=== PATIENT | male | born 1985 | race Caucasian/White ===

== ENCOUNTER 2016-10-29 07:37 | Emergency (ER) | payer OTHER ==
[~2016-10-29] VITALS: Ht 175.3 cm; Wt 70.1 kg
[~2016-10-29 07:37] MED LIST: DEPAKOTE500 MG PO; LIDODERM PATCH; METHADONE10 MG PO; Methadone PO; NICOTINE PATCH; TEGRETOL100 MG PO
[2016-10-29] MEDS ORDERED: MOTRIN800 MG PO (08:19)
[2016-10-29] MEDS ORDERED: FLEXERIL10 MG PO (08:19)
[2016-10-29 09:16] VITALS: BP 131/92
== END 2016-10-29 09:17 | disposition left against medical advice (07) ==
LOC: EME 07:37
DX: S20.211A Contusion of right front wall of thorax, initial encounter (principal); M25.511 Pain in right shoulder; V49.40XA Driver injured in collision with unspecified motor vehicles in traffic accident, initial encounter; F17.200 Nicotine dependence, unspecified, uncomplicated
CPT/HCPCS: 71020; 73030; 99281; 99284

== ENCOUNTER 2017-04-02 12:38 | Inpatient (IN) | payer OTHER ==
[~2017-04-02] VITALS: Ht 175.3 cm; Wt 68.4 kg
[~2017-04-02 12:38] MED LIST changes: +DEPAKOTE ER250 MG PO; -DEPAKOTE500 MG PO; +FLEXERIL10 MG PO; +MOTRIN800 MG PO
[2017-04-02 14:34] LABS: HEMATOCRIT ND % (38.0-50.0); MCH ND PG (29.0-34.0); MCHC ND G/DL (30.0-36.0); MCV ND FL (86-99); RED BLOOD COUNT ND M/uL (4.00-5.50); WHITE BLOOD COUNT ND K/uL (4.1-10.2)
[2017-04-02 14:35] LABS: EOSINOPHIL (%) ND % (0-5); EOSINOPHIL COUNT ND K/uL (0-0.3); IMMATURE GRANULOCYTE (%) ND % (0.0-0.7); LYMPHOCYTE COUNT ND K/uL (1.0-2.8); MONOCYTE (%) ND % (3-12); MONOCYTE COUNT ND K/uL (0-0.8); NEUTROPHIL (%) ND % (45-76); NEUTROPHIL COUNT ND K/uL (1.8-6.4); RBC DIS.WIDTH-CV ND % (11.8-14.6); RBC DIS.WIDTH-SD ND % (39-53)
[2017-04-02 14:36] LABS: BASOPHIL COUNT ND K/uL (0-0.1); IMMATURE GRANULOCYTE COUNT ND K/uL; INSTRUMENT ABS NEUTROPHIL CT ND K/uL; NRBC (%) ND /100 WBC (0-0)
[2017-04-02 14:43] LABS: CHLORIDE 106 mEq/L (99-109); POTASSIUM 3.6 mEq/L (3.7-5.4); SODIUM 140 mEq/L (136-147)
[2017-04-02 14:44] LABS: MAGNESIUM 2.4 mg/dL (1.3-2.7)
[2017-04-02 14:45] LABS: GLUCOSE 105 mg/dL (70-99)
[2017-04-02 14:47] LABS: ANION GAP 12 MEQ/L (2-14); TOTAL BILIRUBIN 1.5 mg/dL (0.0-1.0)
[2017-04-02 14:49] LABS: ALKALINE PHOSPHATASE 68 IU/L (3-129); GFR ESTIMATE (CALCULATED) > 59 mL/min/
[2017-04-02 14:50] LABS: UREA NITROGEN (BUN) 8 mg/dL (9-23)
[2017-04-02 15:03] LABS: EOSINOPHIL (%) 0 % (0-5); HEMATOCRIT 38.7 % (38.0-50.0); IMMATURE GRANULOCYTE (%) 0.8 % (0.0-0.7); IMMATURE GRANULOCYTE COUNT 0.2 K/uL; INSTRUMENT ABS NEUTROPHIL CT 15.3 K/uL; LYMPHOCYTE COUNT 1.1 K/uL (1.0-2.8); MCHC 36.2 G/DL (30.0-36.0); MCV 80.3 FL (86-99); MEAN PLAT.VOLUME 10.1 uM^3 (9.0-12.4); MONOCYTE (%) 7.9 % (3-12); MONOCYTE COUNT 1.4 K/uL (0-0.8); NEUTROPHIL (%) 85.3 % (45-76); NEUTROPHIL COUNT 15.3 K/uL (1.8-6.4); PLATELET COUNT 185 K/uL (156-360); RBC DIS.WIDTH-CV 12.5 % (11.8-14.6); RBC DIS.WIDTH-SD 35.5 % (39-53); RED BLOOD COUNT 4.82 M/uL (4.00-5.50)
[2017-04-02] MEDS ORDERED: ADVIL,NUPRIN,M200 MG PO (15:36)
[2017-04-02] MEDS ORDERED: DEPAKOTE ER250 MG PO (15:36)
[2017-04-02] MEDS ORDERED: TYLENOL REGULA325 MG PO (15:36)
[2017-04-02] MEDS ORDERED: CLEOCIN150 MG PO (15:36)
[2017-04-02] MEDS ORDERED: BACTRIM,SEPT1 TABLET PO (15:37)
[2017-04-02 18:01] VITALS: BP 132/78
[2017-04-03 00:04] VITALS: BP 129/76
[2017-04-03 03:20] VITALS: BP 130/80
[2017-04-03 06:06] LABS: HEMATOCRIT 39.3 % (38.0-50.0); MCH 28.8 PG (29.0-34.0); MCHC 34.6 G/DL (30.0-36.0); MCV 83.1 FL (86-99); MEAN PLAT.VOLUME 10.3 uM^3 (9.0-12.4); PLATELET COUNT 175 K/uL (156-360); RBC DIS.WIDTH-CV 12.8 % (11.8-14.6); RBC DIS.WIDTH-SD 38.2 % (39-53); RED BLOOD COUNT 4.73 M/uL (4.00-5.50); WHITE BLOOD COUNT 12.6 K/uL (4.1-10.2)
[2017-04-03 06:31] LABS: ANION GAP 11 MEQ/L (2-14); CHLORIDE 111 MEQ/L (99-109); GFR ESTIMATE (CALCULATED) > 59 mL/min/; GLUCOSE 98 mg/dL (70-99); POTASSIUM 3.8 MEQ/L (3.7-5.4); SAMPLE HEMOLYSIS CHECK 0; SAMPLE ICTERIC CHECK 0; SAMPLE LIPEMIA CHECK 0; SODIUM 144 MEQ/L (136-147); UREA NITROGEN (BUN) 10 mg/dL (9-23)
[2017-04-03 09:09] VITALS: BP 12/74; BP 120/74
[2017-04-03 10:33] LABS: HIV-1/2 AB/AG COMBO Nonreactive
[2017-04-03 11:49] LABS: HIV INDEX 0.14
[2017-04-03 12:20] LABS: HPCA INDEX 14.18
[2017-04-03 15:41] VITALS: BP 118/77
[2017-04-03 23:30] VITALS: BP 138/81
[2017-04-04] VITALS (7 sets, daily range): BP systolic 123–152; BP diastolic 73–92
[2017-04-04 03:55] LABS: INTER. NORMALIZED RATIO 1.2; PROTHROMBIN TIME 12.7 SEC (10.2-12.9)
[2017-04-04 03:57] LABS: PTT 27.5 SEC (25-37)
[2017-04-04 04:10] LABS: TROP-I INTERPRETATION NEGATIVE; TROPONIN-I < 0.01 ng/mL (0.0-0.30)
[2017-04-05 00:10] VITALS: BP 110/68
[2017-04-05 04:17] VITALS: BP 120/75
[2017-04-05 08:00] VITALS: BP 128/72
[2017-04-05 10:47] LABS: HBSG INDEX 0.19
[2017-04-05 10:49] LABS: ANTI-HEPATITIS A VIRUS (IGM) Nonreactive; ANTI-HEPATITIS B CORE (IGM) Nonreactive; HAV INDEX 0.18; HBC IgM INDEX 0.08
[2017-04-05 10:53] LABS: HPCA INDEX 14.66
[2017-04-05 12:00] VITALS: BP 124/72
[2017-04-05 16:00] VITALS: BP 134/68
[2017-04-05 19:43] VITALS: BP 129/70
[2017-04-06 00:18] VITALS: BP 134/80
[2017-04-06 04:30] VITALS: BP 129/61
[2017-04-06] MEDS ORDERED: BACTRIM,SEPT1 TABLET PO (07:47)
[2017-04-06 07:55] VITALS: BP 132/68
== END 2017-04-06 09:34 | DRG 603 ==
LOC: EME → EDBD 12:38 → EME 12:38 → 5SOUTH 15:29 → EDOF 15:29 → ENRESERV 15:31 → 5SOUTH 17:53
PROVIDERS: Emergency Medicine; Hospitalist; Internal Medicine; Physician Assistant Medical
PROC: 0H9GXZZ Drainage of Left Hand Skin, External Approach (ICD-10-PCS; principal; 2017-04-02)
DX: L03.114 Cellulitis of left upper limb (principal); L02.512 Cutaneous abscess of left hand; B95.62 Methicillin resistant Staphylococcus aureus infection as the cause of diseases classified elsewhere; F14.10 Cocaine abuse, uncomplicated; F11.10 Opioid abuse, uncomplicated; B19.20 Unspecified viral hepatitis C without hepatic coma; F41.0 Panic disorder [episodic paroxysmal anxiety]; J44.9 Chronic obstructive pulmonary disease, unspecified; F31.9 Bipolar disorder, unspecified; F17.200 Nicotine dependence, unspecified, uncomplicated; Z23 Encounter for immunization
CPT/HCPCS: 73130; 80048; 80053; 80074; 80202; 83605; 83735; 84484; 85025; 85025 91; 85027; 85610; 85730; 86703; 86803; 87040; 87070; 87075; 87077; 87147; 87186; 87205; 90686; 93005; 93306; 93971; 99281; 99285; J1650; J1885; J2270; J2405; J3370; J7030; J7040; S0028